=== PATIENT | male | born 1940 | race Caucasian/White ===

== ENCOUNTER → 2023-08-28 14:34 | Outpatient (REF) | payer OTHER, SELFPAY | LOC: RAD 14:34 | PROVIDERS: ATTENDING PHYSICIAN Nurse Practitioner Family; FAMILY PHYSICIAN Nurse Practitioner Primary Care | DX: M79.672 Pain in left foot (principal) | CPT/HCPCS: 73630 ==

== ENCOUNTER → 2023-09-07 15:41 | Outpatient (REF) | payer OTHER, SELFPAY | LOC: RAD 15:41 | PROVIDERS: ATTENDING PHYSICIAN Internal Medicine Critical Care Medicine | DX: R93.89 Abnormal findings on diagnostic imaging of other specified body structures (principal) | CPT/HCPCS: 71250 ==

== ENCOUNTER → 2024-02-09 12:37 | Outpatient (REF) | payer OTHER, SELFPAY | LOC: RCS 12:37 | PROVIDERS: ATTENDING PHYSICIAN Internal Medicine Cardiovascular Disease; FAMILY PHYSICIAN Nurse Practitioner Primary Care | DX: I48.0 Paroxysmal atrial fibrillation (principal); J44.9 Chronic obstructive pulmonary disease, unspecified; R06.09 Other forms of dyspnea; I70.8 Atherosclerosis of other arteries; F17.210 Nicotine dependence, cigarettes, uncomplicated | CPT/HCPCS: 93017 ==

== ENCOUNTER → 2024-02-20 13:30 | Outpatient (REF) | payer OTHER, SELFPAY | LOC: RCS 13:30 | PROVIDERS: ATTENDING PHYSICIAN Internal Medicine Cardiovascular Disease; FAMILY PHYSICIAN Nurse Practitioner Primary Care | DX: I48.0 Paroxysmal atrial fibrillation (principal); J44.9 Chronic obstructive pulmonary disease, unspecified; F17.210 Nicotine dependence, cigarettes, uncomplicated; R06.02 Shortness of breath; R06.09 Other forms of dyspnea | CPT/HCPCS: 93306 ==

== ENCOUNTER → 2024-03-27 08:49 | Outpatient (REF) | payer OTHER, SELFPAY | LOC: RCS 08:49 | PROVIDERS: ATTENDING PHYSICIAN Internal Medicine Cardiovascular Disease; FAMILY PHYSICIAN Nurse Practitioner Primary Care | DX: R06.09 Other forms of dyspnea (principal); I48.0 Paroxysmal atrial fibrillation; J44.9 Chronic obstructive pulmonary disease, unspecified; F17.210 Nicotine dependence, cigarettes, uncomplicated | CPT/HCPCS: 93017; 93350 ==

== ENCOUNTER → 2024-09-10 12:44 | Outpatient (REF) | payer OTHER, SELFPAY | LOC: RAD 12:44 | PROVIDERS: ATTENDING PHYSICIAN Internal Medicine Critical Care Medicine; FAMILY PHYSICIAN Nurse Practitioner Primary Care | DX: J98.4 Other disorders of lung (principal) | CPT/HCPCS: 71250 ==

== ENCOUNTER → 2024-10-15 09:47 | Outpatient (REF) | payer OTHER, SELFPAY | LOC: WDC 09:47 | PROVIDERS: ATTENDING PHYSICIAN Nurse Practitioner Primary Care | DX: N63.41 Unspecified lump in right breast, subareolar (principal) | CPT/HCPCS: 76642; 77062; 77066 ==

== ENCOUNTER → 2025-02-06 12:51 | Outpatient (REF) | payer OTHER, SELFPAY | LOC: RCS 12:51 | PROVIDERS: ATTENDING PHYSICIAN Internal Medicine Cardiovascular Disease; FAMILY PHYSICIAN Nurse Practitioner Primary Care | DX: I48.0 Paroxysmal atrial fibrillation (principal) | CPT/HCPCS: 93306 ==

== ENCOUNTER 2025-02-11 21:07 | Inpatient (IN) | payer OTHER, SELFPAY ==
[2025-02-11] VITALS (11 sets, daily range): BP systolic 105–169; BP diastolic 70–98; BMI 21.2
[2025-02-11 14:52] LABS: Hematocrit 45.8 % (39.0-52.0); Hemoglobin 15.6 g/dL (13.0-18.0); Mean Corp Hgb Conc. 34.1 g/dL (33.0-37.0); Mean Corpuscular Volume 88.2 fL (80.0-94.0); Nucleated Red Blood Cells % 0 % (-); Platelet Count 161 10^3/uL (130-400); Red Cell Dist. Width 13.1 % (11.5-14.5)
[2025-02-11 15:02] LABS: INR 1.18; PT 15.3 Sec (11.4-14.6)
[2025-02-11 15:13] LABS: ALT (SGPT) 18 U/L (0-50); AST (SGOT) 21 U/L (17-59); Albumin 4.2 g/dl (3.5-5.0); Alkaline Phosphatase 54 U/L (38-126); Blood Urea Nitrogen 19 mg/dl (9-20); Calcium 9.0 mg/dl (8.4-10.2); Carbon Dioxide 28 mmol/L (22-30); Chloride 106 mmol/L (98-107); Glucose 173 mg/dl (70-99); Potassium 3.8 mmol/L (3.5-5.1); Sodium 138 mmol/L (135-145); Total Protein 6.9 g/dl (6.3-8.2); eGFR > 60.00
[2025-02-11 15:24] LABS: Troponin I < 0.012 ng/ml
--- NOTE | 2025-02-11 16:29 | ED.GENMED ---
History of Present Illness
<Mariza Alonso PA-C - Last Filed: 02/11/25 22:16>
General
Chief Complaint: Breathing Problem
Source: patient
Exam Limitations: none
Time Seen by Provider: 02/11/25 16:28
History of Present Illness
History of Present Illness:
84yoM with a history of atrial fibrillation on Eliquis, hypertension, COPD, BETTY on CPAP, and tobacco use presenting with his for evaluation of shortness of breath. Patient woke up this morning feeling like it was hard to breathe. He also
reported discomfort with breathing. Symptoms worsen with lying down but are also present with activity. He denies any wheezing, cough, fevers, leg swelling, dizziness, syncope. He was treated with several courses of antibiotics this past summer
for sinusitis. His jalousie installer is Dr. Hough. He had an echocardiogram 5 days ago which showed normal LV size and function and EF was 55%.
Phy Exam
<Mariza Alonso PA-C - Last Filed: 02/11/25 22:16>
General Physical Exam
General Presentation: well appearing and no apparent distress
General Skin: warm and dry
General Habitus: normal
General Mental: alert
ENT Exam
ENT Exam: normocephalic
Cardiovascular Exam
Cardiovascular Exam: no edema and irregularly irregular
Pulmonary Exam
Pulmonary Exam: lungs clear, no rales, no crackles, no rhonchi, no wheezing and other (Patient appears mildly dyspneic. No wheezing or rales noted on auscultation. )
Neurological Exam
Neurological Exam: alert
Henry Coma Scale
Eye Opening: Spontaneous
Verbal Response: Oriented
Motor Response: Obeys Commands
GCS Total Score: 15
Skin Exam
Skin Exam: normal color and warm/dry
Psychiatric Exam
Psychiatric Exam: normal mood/affect
Scores
<Mariza Alonso PA-C - Last Filed: 02/11/25 22:16>
Heart Failure Risk
Heart Failure Risk Score: Not Applicable
Course
<Mariza Alonso PA-C - Last Filed: 02/11/25 22:16>
Orders/Labs/Results
Orders:
Orders
02/11/25 Breakfast
Cholesterol Lowering
Cholesterol Lowering: Sodium, 2 Gram
02/11/25 13:56
EKG [Electrocardiogram (*1)] Urgent
Reason for Study: Chest Pain
EKG- Treatment ONCE
02/11/25 14:18
Complete Blood Count/With Diff Urgent
Comprehensive Metabolic Panel Urgent
Magnesium Urgent
Comment: ADD ON
NT-proBNP Urgent
Comment: ADD ON
Prothrombin Time Urgent
TSH Urgent
Comment: ADD ON
Troponin I Urgent
02/11/25 15:38
ECG [Electrocardiogram (*1)] Urgent
Reason for Study: Chest Pain
EKG- Treatment ONCE
02/11/25 16:47
Add On- LAB Urgent
Tests Added?: TSH, magnesium, BNP
Cardiac Monitoring- Treatment ONCE
CR Chest - 2 Views Urgent
Comment:
Reason For Exam: SOB
02/11/25 17:21
COVID-19 Antigen Urgent
Source: Nasal Swab
Troponin I Urgent
Influenza A+B Rapid Molecular Urgent
KARLY Source: Nasal Swab
Specimen Description:
02/11/25 19:13
Ipratropium/Albuterol Sulfate [Duoneb] 3 ml INH R NOW STA
02/11/25 20:04
Dexamethasone Sod Phosphate [Decadron] 10 mg IV NOW STA
Ipratropium/Albuterol Sulfate [Duoneb] 3 ml INH R NOW STA
02/11/25 20:58
Admit/Transfer Patient As Directed
Co-Sign Provider:
Level of Care: Inpatient admission
Assign to:: Medical/Surgical
Physician / Group: simon
Diagnosis: COPD exacerbation
Reason for Hospitalization: COPD exacerbation
Expected length of stay greater than two midnights?: Yes
ELOS- Estimated Length of Stay in days: 3
I certify the patient meets the requirements for IP care: Yes
Code Status As Directed
Resuscitation Status: Full Code
PRN Pain Medication Management As Directed
May give lesser potent ordered pain med per pt: Yes
preference::
Protocol:: Medication orders for pain may be administered in a
manner that supports deferring to patient preference
when the pt is:
- Requesting an ordered lesser potent pain medication.
Least to most potent pain medications are defined
as: acetaminophen < NSAID < tramadol < opioids
(morphine, oxycodone, hydromorphone).
- Requesting a lesser dose of the same medication IF
ORDERED.
- Requesting a less intrusive route of administration
if both routes are prescribed by the provider (PO <
IV).
02/11/25 22:11
Acetaminophen [Tylenol] 650 mg PO Q4HPRN PRN
Dexamethasone Sod Phosphate [Decadron] 4 mg IV Q8H
Ipratropium/Albuterol Sulfate [Duoneb] 3 ml INH R Q4HPRN PRN
zaleplon 10 mg PO HS
02/11/25 22:11
Activity As Directed
Activity Level: As Tolerated
Intake/ Output As Directed
Frequency: Per unit guidelines
Pneumatic Compression Sleeves As Directed
Type: Thigh high
Vital Signs As Directed
Frequency: Per unit guidelines
Copd Education [RESP] Routine
Cpap [RESP] Routine
Patient to use own unit?: No
Set Pressure (cm H2O): 5
DX Deep Vein Thrombosis Video Routine
02/12/25 08:00
Apixaban [Eliquis] 5 mg PO BID
Atorvastatin [Lipitor] 20 mg PO DAILY
Ipratropium/Albuterol Sulfate [Duoneb] 3 ml INH R QID
Pantoprazole [Protonix] 40 mg PO DAILY
lisinopril-hydrochlorothiazide 1 tablet PO DAILY
Abnormal Lab Results
02/11/25
14:18
MPV 11.4 H fL
(7.4-10.4)
Absolute Lymphs (auto) 1.1 L 10^3/uL
(1.2-3.4)
Neutrophils % 76.5 H %
(42.2-75.2)
Lymphocytes % 16.1 L %
(20.5-51.1)
PT 15.3 H Sec
(11.4-14.6)
Glucose 173 H mg/dl
(70-99)
Total Bilirubin 1.5 H mg/dl
(0.2-1.3)
02/11/25 14:18
02/11/25 14:18
Vital Signs
Initial and Last Documented VS:
Initial Vital Signs
Temp Pulse Resp BP Pulse Ox
98.1 F 70 22 132/70 95
02/11/25 14:01 02/11/25 14:01 02/11/25 14:01 02/11/25 14:01 02/11/25 14:01
Last Documented Vital Signs
Temp Pulse Resp BP Pulse Ox
98.1 F 80 24 159/88 96
02/11/25 14:01 02/11/25 21:45 02/11/25 21:45 02/11/25 21:01 02/11/25 21:45
Khadarlt;Wilian Melendez, DO - Last Filed: 02/11/25 20:07>
Orders/Labs/Results
Orders:
Orders
02/11/25 Breakfast
Cholesterol Lowering
Cholesterol Lowering: Sodium, 2 Gram
02/11/25 13:56
EKG [Electrocardiogram (*1)] Urgent
Reason for Study: Chest Pain
EKG- Treatment ONCE
02/11/25 14:18
Complete Blood Count/With Diff Urgent
Comprehensive Metabolic Panel Urgent
Magnesium Urgent
Comment: ADD ON
NT-proBNP Urgent
Comment: ADD ON
Prothrombin Time Urgent
TSH Urgent
Comment: ADD ON
Troponin I Urgent
02/11/25 15:38
ECG [Electrocardiogram (*1)] Urgent
Reason for Study: Chest Pain
EKG- Treatment ONCE
02/11/25 16:47
Add On- LAB Urgent
Tests Added?: TSH, magnesium, BNP
Cardiac Monitoring- Treatment ONCE
CR Chest - 2 Views Urgent
Comment:
Reason For Exam: SOB
02/11/25 17:21
COVID-19 Antigen Urgent
Source: Nasal Swab
Troponin I Urgent
Influenza A+B Rapid Molecular Urgent
KARLY Source: Nasal Swab
Specimen Description:
02/11/25 19:13
Ipratropium/Albuterol Sulfate [Duoneb] 3 ml INH R NOW STA
02/11/25 20:04
Dexamethasone Sod Phosphate [Decadron] 10 mg IV NOW STA
Ipratropium/Albuterol Sulfate [Duoneb] 3 ml INH R NOW STA
02/11/25 20:58
Admit/Transfer Patient As Directed
Co-Sign Provider:
Level of Care: Inpatient admission
Assign to:: Medical/Surgical
Physician / Group: simon
Diagnosis: COPD exacerbation
Reason for Hospitalization: COPD exacerbation
Expected length of stay greater than two midnights?: Yes
ELOS- Estimated Length of Stay in days: 3
I certify the patient meets the requirements for IP care: Yes
Code Status As Directed
Resuscitation Status: Full Code
PRN Pain Medication Management As Directed
May give lesser potent ordered pain med per pt: Yes
preference::
Protocol:: Medication orders for pain may be administered in a
manner that supports deferring to patient preference
when the pt is:
- Requesting an ordered lesser potent pain medication.
Least to most potent pain medications are defined
as: acetaminophen < NSAID < tramadol < opioids
(morphine, oxycodone, hydromorphone).
- Requesting a lesser dose of the same medication IF
ORDERED.
- Requesting a less intrusive route of administration
if both routes are prescribed by the provider (PO <
IV).
02/11/25 22:11
Acetaminophen [Tylenol] 650 mg PO Q4HPRN PRN
Dexamethasone Sod Phosphate [Decadron] 4 mg IV Q8H
Ipratropium/Albuterol Sulfate [Duoneb] 3 ml INH R Q4HPRN PRN
zaleplon 10 mg PO HS
02/11/25 22:11
Activity As Directed
Activity Level: As Tolerated
Intake/ Output As Directed
Frequency: Per unit guidelines
Pneumatic Compression Sleeves As Directed
Type: Thigh high
Vital Signs As Directed
Frequency: Per unit guidelines
Copd Education [RESP] Routine
Cpap [RESP] Routine
Patient to use own unit?: No
Set Pressure (cm H2O): 5
DX Deep Vein Thrombosis Video Routine
02/12/25 08:00
Apixaban [Eliquis] 5 mg PO BID
Atorvastatin [Lipitor] 20 mg PO DAILY
Ipratropium/Albuterol Sulfate [Duoneb] 3 ml INH R QID
Pantoprazole [Protonix] 40 mg PO DAILY
lisinopril-hydrochlorothiazide 1 tablet PO DAILY
Abnormal Lab Results
02/11/25
14:18
MPV 11.4 H fL
(7.4-10.4)
Absolute Lymphs (auto) 1.1 L 10^3/uL
(1.2-3.4)
Neutrophils % 76.5 H %
(42.2-75.2)
Lymphocytes % 16.1 L %
(20.5-51.1)
PT 15.3 H Sec
(11.4-14.6)
Glucose 173 H mg/dl
(70-99)
Total Bilirubin 1.5 H mg/dl
(0.2-1.3)
02/11/25 14:18
02/11/25 14:18
Vital Signs
Initial and Last Documented VS:
Initial Vital Signs
Temp Pulse Resp BP Pulse Ox
98.1 F 70 22 132/70 95
02/11/25 14:01 02/11/25 14:01 02/11/25 14:01 02/11/25 14:01 02/11/25 14:01
Last Documented Vital Signs
Temp Pulse Resp BP Pulse Ox
98.1 F 80 24 159/88 96
02/11/25 14:01 02/11/25 21:45 02/11/25 21:45 02/11/25 21:01 02/11/25 21:45
Khadarlt;Mariza Alonso PA-C - Last Filed: 02/11/25 22:16>
MDM/Problems Addressed
Differential Diagnosis Includes:
84yoM here with SOB that began earlier today. Recent echo last week showed normal EF. VSS. He is in rate controlled A-fib on initial exam. I was able to obtain his outpatient cardiology notes from October 2024 and he was also in A-fib at that time.
He does not appear volume overloaded. Oxygen saturation 99 to 100% during exam and there is no obvious wheeze or rales on lung exam. Differential diagnosis includes but is not limited to: COPD exacerbation, pneumonia, viral illness, ACS,
symptomatic A-fib
Initial ED plan: Workup initiated in triage. EKG does not show any ischemic changes and troponin undetectable. Will check COVID/flu swab, BNP, TSH, delta troponin, and CXR.
<Mariza Alonso PA-C - Last Filed: 02/11/25 22:16>
*Pulse Oximetry
SaO2: 99
Oxygen Mode of Delivery: Room air
Patient hypoxic: no
*EKG
Interpreted by ED Provider?: Yes
EKG Intrepretation Date: 02/11/25
Heart Rate: 68
Rate: normal
Rhythm: a-fib
[place]: normal axis
Interval: normal interval
QRS Pattern: normal QRS
Ischemia: other (nonspecific T wave changes)
*Critical Care Note
Total Time (30-74mins, 75-104mins- exclusive of procedures): Not Applicable
<Mariza Alonso PA-C - Last Filed: 02/11/25 22:16>
Update Note
Update Note:
Viral testing negative. Repeat troponin remains undetectable. Chest x-ray shows severe COPD without infiltrates or pulmonary edema. Patient given a DuoNeb but still continues to appear dyspneic. does not feel comfortable with patient going
home. IV Decadron ordered and patient admitted for further management.
ED Attending Note
<Mariza Alonso PA-C - Last Filed: 02/11/25 22:16>
-
Portions of this chart may have been created with voice recognition software.� Occasional wrong word or��sound alike� substitutions may have occurred due to the inherent limitations of voice recognition software.
<Wilian Melendez DO - Last Filed: 02/11/25 20:07>
ED Attending Note
Patient seen and examined by attending physician: Yes
ED Attending Note:
I have reviewed and agree with history and treatment plan by Mariza Alonso PA-C. My exam revealed
Physical Exam
General: no apparent distress, not acutely ill
Neck: supple. no meningeal signs. normal posterior pharynx
Heart: s1/s2 regular rate and irregular rhythm, no murmur. equal radial
pulses.
HEENT: Pupils equal round reactive to light, EOMI
Lungs: no acute respiratory distress. Faint wheezing bilaterally
Abdomen: normal bowel sounds. not tender. no CVAT
Neuro: alert and oriented. no focal neurological deficits cranial nerves II through XII intact
Skin: no rash
Psychiatric: well kept. interactive and cooperative
Extremities: no edema. no calf tenderness. negative homans. good distal pulses
84-year-old male with COPD exacerbation. Patient dyspneic when walking around room removed around bed. Will repeat DuoNeb and give Decadron. Admit to hospitalist for further treatment.
Discharge Plan
Departure
Patient Disposition: Admit
Date of Disposition: 02/11/25
Time of Disposition: 20:09
Presentation/result/management discussed w/ accepting MD/DO: Hospitalist
Discharge Problem:
COPD with acute exacerbation, Atrial fibrillation
Interventions
Interventions:
*Risk Screen - Suicide Last Done: 02/11/25 14:01
*General Assessment Last Done: 02/11/25 16:31
*ED- Fall Risk Assessment Last Done: 02/11/25 16:31
*ED COVID-19 Vaccine History Last Done: 02/11/25 16:31
*ED Influenza Vaccine History Last Done: 02/11/25 16:31
ED- Cardiac Assessment Last Done: 02/11/25 16:31
ED- Pulmonary Assessment Last Done: 02/11/25 16:31
[2025-02-11 17:15] LABS: Magnesium 2.0 mg/dl (1.6-2.3)
[2025-02-11 17:46] LABS: TSH 1.83 uIU/ml (0.47-4.68)
[2025-02-11 18:10] LABS: COVID-19 Antigen Negative (Negative)
[2025-02-11 18:15] LABS: Troponin I < 0.012 ng/ml
[2025-02-11] MEDS: DUONEB 3 ML INH ×3 (19:21→23:09)
[2025-02-11] MEDS: DECADRON 10 MG IV (20:19)
--- NOTE | 2025-02-11 20:32 | HPS.HSE ---
Family Physician
-
Family Physician: Tracy Jiménez
Chief Complaint
-
Short of breath
History of Present Illness
84yoM with a history of atrial fibrillation on Eliquis, hypertension, COPD, BETTY on CPAP, and tobacco use presenting with his for evaluation of shortness of breath. Patient woke up this morning feeling like it was hard to breathe. sob worse
with exertion and laying flat. patient stated mid sternum chest discomfort. He denies any wheezing, cough, fevers, leg swelling, dizziness, syncope. Patient denies any abdominal pain, nausea, vomiting or diarrhea. Patient denied dysuria. Patient
denied any lower extremities edema.
Upon arrival noted in COPD exacerbation. Patient received a dose of neb treatment, IV steroid. Admitting for further management
Medical History
Past Medical History
Past Medical History: Reports Other
Additional Past Medical History:
Anxiety, A-fib, hypothyroidism, hypertension, pulmonary emphysema, hyperlipidemia, COPD, osteopenia
Past Surgical History: Reports Other
Additional Past Surgical History:
Cataract extraction
Social History
Tobacco: Other (Patient smokes 3 cigarettes daily, as well as vaping daily)
Alcohol: Daily (6oz of vodka daily)
Drug: None
Personal:
Living: With Family
Family History
Family History: Not pertinent
Allergies / Home Medications
Allergies reflects when Allergies were last updated in [employer].
Home Medications with original date entered in [employer]
Allergy/Medication List:
Allergies
Allergy/AdvReac Type Severity Reaction Status Date / Time
No Known Allergies Allergy Verified 02/11/25 14:01
Review of Systems
-
Constitutional: Reports No Symptoms
EENT: Reports No Symptoms
Respiratory: Reports Trouble Breathing
Cardiac: Reports No Symptoms
Abdomen/GI: Reports No Symptoms
: Reports No Symptoms
Musculoskeletal: Reports No Symptoms
Skin: Reports No Symptoms
Neurological: Reports No Symptoms
Endocrine: Reports No Symptoms
Hematologic/Lymphatic: Reports No Symptoms
Psych: Reports No Symptoms
Physical Exam
Vital Signs
Vital Signs
Temp Pulse Resp BP Pulse Ox
98.1 F 78 19 169/98 98
02/11/25 14:01 02/11/25 20:00 02/11/25 20:00 02/11/25 20:00 02/11/25 20:00
Physical Exam
General: Well Developed, Well Nourished and No Apparent Distress
HEENT: NormoCephalic, Moist mucous membranes and Atraumatic
Respiratory: Rales
Cardiac: S1/S2 and Regular Rhythm; No Murmur or Rub
GI: Soft, Non Tender, Non Distended and Normal Bowel Sounds; No Organomegaly
Rectal: Deferred by Provider
Musculoskeletal: No Clubbing, No Cyanosis and No Edema
Skin: No Rash
Neuro: Nonfocal/grossly intact
Laboratory Results
-
02/11/25 14:18
02/11/25 14:18
Laboratory Results
PT 15.3 Sec (11.4-14.6) H 02/11/25 14:18
INR 1.18 02/11/25 14:18
Total Bilirubin 1.5 mg/dl (0.2-1.3) H 02/11/25 14:18
AST 21 U/L (17-59) 02/11/25 14:18
ALT 18 U/L (0-50) 02/11/25 14:18
Alkaline Phosphatase 54 U/L (38-126) 02/11/25 14:18
Troponin I < 0.012 ng/ml 02/11/25 17:21
Data Reviewed
-
Diagnostic Radiology: Report Reviewed by me
Lab Data: Labs Reviewed by me
Impression/Plan
-
# Short of breath secondary to COPD exacerbation
- DuoNebs continue
- IV steroids continued
- Chest x-ray with impression of Lungs are hyperinflated compatible with severe COPD/emphysema. The lungs appear clear. The cardiac silhouette, vascular markings, and mediastinal shadow appear normal.
# Control A-fib
- EKG with A-fib
- Eliquis continued
#Essential hypertension
# Hyperlipidemia
- Statin and lisinopril continued
#vape/Nicotine dependence
-encourage smoking cessation
-denied nicotine patch
#alcohol abuse
-6oz of vodka daily
-monitor MSAS, alcohol protocol
# DVT prophylaxis
- Eliquis
# CODE STATUS
- Full code
--- NOTE | 2025-02-11 21:07 | W.PN.UPDATE ---
Update Note
Progress Note Update
This is an addendum to H&P written by MINE INSPECTOR Nancy Wilcox
I saw and examined the patient.
The MINE INSPECTOR's note was reviewed and I agree with the note.
Comment:
Mr. Kye Rico is a 84 yo man with hx atrial fibrillation Eliquis, HTN, COPD, BETTY on CPAP, tobacco use and vape use presents to the ER with shortness of breath.
Triage vitals stable. Labs with glucose 173, Trop negative x 2. On exam patient is AAO x 3; CV: S1, S2, RRR; Chest currently without wheezing (post nebs)
CXR 02/11/25
IMPRESSION:
Lungs are hyperinflated compatible with severe COPD/emphysema. The lungs appear clear. The cardiac silhouette, vascular markings, and mediastinal shadow appear normal.
COPD, Acute Exacerbation
current Tobacco use
-admit to med/surg
-flu and covid negative
-duonebs, IV Steroids
-Mucinex BID
Atrial Fibillration on Eliquis
Essential HTN
-continue [employer] Lisinopril-HCTZ
Hyperglycemia
-check A1c
-may need to order sliding scale based on AM sugar
Remainder of plan per MINE INSPECTOR note
--- NOTE | 2025-02-11 22:43 | PTCARENOTE ---
Pt transferred to 4W. Pt able to ambulate from stretcher to bed. Pt AAOx3, oriented to room, safety measures in place, call rizvi within reach.
[2025-02-11] MEDS: AMBIEN 5 MG PO (22:49)
[2025-02-11] MEDS: MUCINEX 600 MG PO (22:49)
[2025-02-11] MEDS: ELIQUIS 5 MG PO (23:09)
[2025-02-12] MEDS: DECADRON 4 MG IV (05:11)
[2025-02-12] MEDS: ELIQUIS 5 MG PO (07:32)
[2025-02-12] MEDS: LIPITOR 20 MG PO (07:32)
[2025-02-12] MEDS: PROTONIX 40 MG PO (07:33)
[2025-02-12] MEDS: MUCINEX 600 MG PO (07:33)
[2025-02-12] MEDS: THIAMINE INJECTION 200 MG IV (07:33)
[2025-02-12] MEDS: FOLVITE 1 MG PO (07:33)
[2025-02-12] MEDS: ORETIC 12.5 MG PO (07:34)
[2025-02-12] MEDS: FLUSH (NSS) 1 FLUSH IV (07:34)
[2025-02-12] MEDS: ZESTRIL 10 MG PO (07:35)
[2025-02-12 07:41] VITALS: BP 157/89
[2025-02-12] MEDS: DUONEB 3 ML INH (07:49)
[2025-02-12 08:33] LABS: Blood Urea Nitrogen 17 mg/dl (9-20); Calcium 8.9 mg/dl (8.4-10.2); Carbon Dioxide 24 mmol/L (22-30); Chloride 107 mmol/L (98-107); Estimated Creatinine Clearance 85 ml/min; Glucose 176 mg/dl (70-99); Potassium 4.1 mmol/L (3.5-5.1); Sodium 138 mmol/L (135-145); eGFR > 60.00
[2025-02-12 08:52] LABS: Glycohemoglobin (HgbA1c) 5.9 % (4.0-5.6)
--- NOTE | 2025-02-12 10:00 | PTCARENOTE ---
Patient currently in bed, sleeping quietly on his right side. Call rizvi in reach and bed alarm maintained.
--- NOTE | 2025-02-12 10:41 | CM ---
CM reviewed chart, patient seen bedside, initial assessment completed.
Patient is an 84 year old Male with a history of atrial fibrillation on Eliquis, hypertension, COPD, BETTY on CPAP, and tobacco use presenting with his for evaluation of shortness of breath.
Patient resides with his in a multiple level home, three steps to enter.
Patient denies use of DME, VN/SNF hx.
PCP Tracy Jiménez, [facility], confirms prescription coverage.
Patient denies insecurities at home.
CM discussed consult for substance use, offered resources/support to patient. Patient declining support, reports he drinks the same amount daily, is an adult and does not need resources.
Plan; home no needs anticipated
[2025-02-12] MEDS: DUONEB INH (11:16)
[2025-02-12] MEDS: DECADRON IV (13:00)
[2025-02-12 13:17] VITALS: BP 133/62
--- NOTE | 2025-02-12 17:14 | W.PN.UPDATE ---
Update Note
Progress Note Update
Acute COPD exacerbation without O2 requirement
Viral panel negative
Chest x-ray without evidence of pneumonia or edema
EKG nonischemic with poor R wave progression with atrial fibrillation
Troponin negative x 2
Received IV Decadron transition to oral
Continue nebs
Incentive spirometer
Mucinex
Nasal saline
Outpatient pulmonary follow-up
Atrial fibrillation�chronic
Continue Eliquis
Not on antiarrhythmics or rate controlling agents
Hypertension
Continue antihypertensives
Alcohol abuse disorder
Continue thiamine folate
MSAS
Read, reviewed, and agree. See same day progress note for additional details. Time spent reviewing records in EMR, med rec, consults, notes, d/w consultants, nursing, family, and CM
--- NOTE | 2025-02-12 18:30 | W.PN.HOSP.TC ---
Today's Communication/Plan
-
patient discharged home on
albuterol inhaler
Symbicort inhaler
Mucinex
Nebulizer
prednisone 40 mg daily for 5 days
Spiriva inhaler
Assessment / Plan
Assessment / Plan
Impression :
84yoM with a history of atrial fibrillation on Eliquis, hypertension, COPD, BETTY on CPAP, and tobacco use presenting with his for evaluation of shortness of breath. Patient woke up this morning feeling like it was hard to breathe. sob worse
with exertion and laying flat. patient stated mid sternum chest discomfort. He denies any wheezing, cough, fevers, leg swelling, dizziness, syncope. Patient denies any abdominal pain, nausea, vomiting or diarrhea. Patient denied dysuria. Patient
denied any lower extremities edema.
Upon arrival noted in COPD exacerbation. Patient received a dose of neb treatment, IV steroid. Admitting for further management
#Acute COPD exacerbation without O2 requirement
Chest x-ray without evidence of pneumonia or edema
EKG nonischemic with poor R wave progression with atrial fibrillation
Troponin negative x 2
Received IV Decadron will be discharged on oral
Continue nebs
Incentive spirometer
Viral panel negative
Mucinex
Nasal saline
Outpatient pulmonary follow-up
#Atrial fibrillation�chronic
Continue Eliquis
Not on antiarrhythmics or rate controlling agents
#Hypertension
Continue antihypertensives
#Alcohol abuse disorder
Continue thiamine folate
Anticipated Discharge: Today
Subjective/Interval History
-
Date of Service: February 12, 2025
Patient feels 'good today' and wants to go home today. He denied SOB , chest pain, cough. No fever or chills.
Objective Data
-
Labs:
Laboratory Results
02/12/25
07:32
Sodium 138
Potassium 4.1
Chloride 107
Carbon Dioxide 24
BUN 17
Creatinine 0.7
Glucose 176 H
Calcium 8.9
Vital Signs:
Vital Signs
Temp Pulse Resp BP Pulse Ox
98.2 F 88 17 133/62 97
02/12/25 13:17 02/12/25 13:17 02/12/25 13:17 02/12/25 13:17 02/12/25 13:17
I&O
02/11/25 02/12/25 02/13/25
06:59 06:59 06:59
Intake Total 120 / 120 780 / 780
Balance 120 / 120 780 / 780
Review of Systems
-
History Source: Patient
Respiratory: Reports No Symptoms
Cardiac: Reports No Symptoms
Abdomen/GI: Reports No Symptoms
Genitourinary: Reports No Symptoms
Neuro: Reports No Symptoms
Physical Exam
-
General: Well Developed, Well Nourished and No Apparent Distress
Respiratory: Clear to Auscultation
GI: Soft, Nontender and Nondistended
Genito-urinary: Clear Urine
Musculoskeletal: No Clubbing, No Cyanosis and No Edema
== END 2025-02-12 13:18 | disposition home or self-care (01) | DRG 192 ==
LOC: 4 WEST ACU 21:07
PROVIDERS: Physician Assistant; Registered Nurse; Specialist Research Data Abstracter/Coder; ADMITTING PHYSICIAN Student in an Organized Health Care Education/Training Program; ATTENDING PHYSICIAN Hospitalist; EMERGENCY PHYSICIAN Emergency Medicine; FAMILY PHYSICIAN Nurse Practitioner Primary Care
DX: J44.1 Chronic obstructive pulmonary disease with (acute) exacerbation (principal); Z11.52 Encounter for screening for COVID-19; F17.210 Nicotine dependence, cigarettes, uncomplicated; F17.290 Nicotine dependence, other tobacco product, uncomplicated; I10 Essential (primary) hypertension; I48.91 Unspecified atrial fibrillation; E78.5 Hyperlipidemia, unspecified; F41.9 Anxiety disorder, unspecified; Z79.01 Long term (current) use of anticoagulants
CPT/HCPCS: 71046; 80048; 80053; 83036; 83735; 83880; 84443; 84484; 85025; 85610; 87502; 87811; 93005; 94640; 94660; 96374; 99285